=== PATIENT | female | born 1955 | race Caucasian/White ===

== ENCOUNTER 2016-11-27 15:49 | Outpatient (CLI) | payer MEDICARE ==
[2016-11-27 16:33] LABS: eGFR (African) > 60; eGFR (Non-African) > 60
== END 2016-11-27 15:50 ==
LOC: LAB 15:49
PROVIDERS: ATTEND Family Medicine
DX: E11.40 Type 2 diabetes mellitus with diabetic neuropathy, unspecified (principal)
CPT/HCPCS: 36415; 80053; 82043; 83036

== ENCOUNTER 2017-02-12 14:21 | Outpatient (CLI) | payer OTHER ==
--- NOTE | 2017-02-12 15:36 | Diagnostic Imaging Report ---
BELLA HARRIS [facility] [id number] [facility].[address] [id number] Report Submission Date: Feb 12, 2017 3:25:14 PM CDT Patient Study Name: ENRIQUETA MCCARTHY Date: Feb 12, 2017 3:09:48 PM CDT Modality Type: CR Gender: F Description: LOWER EXTREMITY : 53 Institution: [facility] Physician: BELLA HARRIS 3 views of the right knee History: Worsening right knee pain, arthritis, no known injury Findings: No comparison studies There is tricompartmental degenerative change with narrowing of the medial knee joint space Small suprapatellar effusion No evidence of acute fracture or dislocation. Impression: Tricompartmental degenerative change with narrowing of the medial joint space. Small suprapatellar effusion Electronically signed on Feb 12, 2017 3:25:14 PM CDT by: Mariana GENAO
== END 2017-02-12 14:22 ==
LOC: LAB 14:21
PROVIDERS: ATTEND Family Medicine
DX: E11.40 Type 2 diabetes mellitus with diabetic neuropathy, unspecified (principal)
CPT/HCPCS: 73562; 83036

== ENCOUNTER 2017-08-13 11:19 | Outpatient (CLI) | payer OTHER ==
[2017-08-13 12:26] LABS: eGFR (African) > 60; eGFR (Non-African) > 60
== END 2017-08-13 11:20 ==
LOC: LAB 11:19
PROVIDERS: ATTEND Family Medicine
DX: E11.40 Type 2 diabetes mellitus with diabetic neuropathy, unspecified (principal)
CPT/HCPCS: 36415; 80053; 80061; 83036

== ENCOUNTER 2018-02-09 16:10 | Outpatient (CLI) | payer OTHER ==
[2018-02-09 16:19] LABS: eGFR (African) > 60; eGFR (Non-African) > 60
== END 2018-02-09 16:11 ==
LOC: LABRHC 16:10
PROVIDERS: ATTEND Family Medicine
DX: E11.40 Type 2 diabetes mellitus with diabetic neuropathy, unspecified (principal); M54.5 Low back pain
CPT/HCPCS: 80053; 80061; 82043; 83036

== ENCOUNTER 2018-08-12 12:08 | Outpatient (CLI) | payer OTHER ==
[2018-08-12 13:05] LABS: eGFR (Non-African) > 60
== END 2018-08-12 12:10 ==
LOC: LAB 12:08
PROVIDERS: ATTEND Family Medicine
DX: E11.40 Type 2 diabetes mellitus with diabetic neuropathy, unspecified (principal)
CPT/HCPCS: 36415; 80053; 83036